=== PATIENT | male | born 1955 | race Caucasian/White ===

== ENCOUNTER 2017-09-14 17:06 | Emergency (ER) | payer BC, OTHER ==
[~2017-09-14 17:06] MED LIST: Sodium Chloride 0.9% 100 ML BAG ONE; Sodium Chloride Irrig Solution 250 ML BOT ONE
[2017-09-14] MEDS ORDERED: Adacel (T-DAP) 0.5 ML VIAL ONE (17:37)
[2017-09-14] MEDS ORDERED: ceFAZolin Sodium 1 GM VIAL ONE (17:41)
[2017-09-14 17:56] LABS: #Basophils 0.1 thou/uL (0.0-0.2); #Eosinphils 0.2 thou/uL (0.0-0.7); #Lymphocytes 2.4 thou/uL (1.20-3.40); #Monocytes 0.8 thou/uL (0.11-0.59); #Neutrophils 4.3 thou/uL (1.40-6.50); %Basophils 1.1 % (0.0-1.0); %Eosinophils 3.1 % (0.0-10.0); %Lymphocytes 30.6 % (21.0-51.0); %Monocytes 10.5 % (0.0-10.0); %Neutrophils 54.7 % (42.0-75.0); Hemoglobin 13.5 g/dL (14.0-18.0); Mean Corpuscular HGB CONC 35.1 g/dL (32.0-36.0); Mean Corpuscular Hemoglobin 33.2 pg (27.0-31.0); Mean Corpuscular Volume 94.7 fl (80.0-94.0); Mean Platelet Volume 7.4 fL (7.4-10.4); Platelet Count 169 thou/uL (130-400); RBC Distribution Width 10.9 % (11.5-14.5); Red Blood Cell (RBC) Count 4.05 mill/uL (4.70-6.10); White Blood Cell (WBC) Count 7.9 thou/uL (4.8-10.8)
[2017-09-14] MEDS ORDERED: Gentamicin 80 MG/2 ML VIAL ONE (18:05)
[2017-09-14] MEDS ORDERED: Bacitracin Zinc 1 Packet ONE (18:09)
[2017-09-14 18:13] LABS: ALT (SGPT) 15 U/L (8-55); AST (SGOT) 16 U/L (5-34); Alkaline Phosphatase 51 U/L (40-150); Anion Gap 18 mmol/L (10-20); BUN (Urea Nitrogen) 15 mg/dL (8.4-25.7); Bilirubin, Total 0.9 mg/dL (0.2-1.2); Calc. Creatinine Clearance 0 mL/min (70-130); Calcium 8.8 mg/dL (7.8-10.44); Carbon Dioxide 19 mmol/L (23-31); Chloride 106 mmol/L (98-107); Estimated GFR-MDRD 75; Globulin 3.2 g/dL (2.4-3.5); Glucose 97 mg/dL (80-115); Potassium 3.6 mmol/L (3.5-5.1); Protein, Total 7.2 g/dL (5.8-8.1); Sodium 139 mmol/L (136-145)
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
[2017-09-14] MEDS ORDERED: Bupivacaine PF 0.5% 30 ML VIAL ONE (19:17)
[2017-09-14] MEDS ORDERED: Bacitracin Zinc Ointment 30 gm TUBE ONE (19:17)
[2017-09-14] MEDS ORDERED: Sodium Chloride 0.9% 90 ML ONE (19:17)
[2017-09-14] MEDS ORDERED: Sodium Chloride 0.9% 10 ML ONE (19:20)
== END 2017-09-14 18:32 | disposition short-term general hospital (02) ==
LOC: MADERS 17:06
DX: S61.412A Laceration without foreign body of left hand, initial encounter (principal); I10 Essential (primary) hypertension; Z23 Encounter for immunization; X58.XXXA Exposure to other specified factors, initial encounter
CPT/HCPCS: 80053; 85025; 90471; 90715; 96365; 96367; 96375; A4216; J0690; J1170; J1580; J3490; J7050; S0020